=== PATIENT | male | born 1940 | race African-American/Black ===

== ENCOUNTER 2021-02-12 08:21 | Emergency (ER) | payer OTHER ==
[~2021-02-12] VITALS: Ht 165.1 cm; Wt 72.7 kg
[2021-02-12] MEDS ORDERED: ACETAMINOPHEN 325MG TABLET PO ONE (08:45)
[2021-02-12 09:00] LABS: BASOPHILS % 0.6 % (0.0-2.0); EOSINOPHILS % 0.8 % (0.0-5.0); HEMATOCRIT. 34.4 % (42.0-52.0); HEMOGLOBIN. 11.4 g/dL (14.0-18.0); LYMPHOCYTES % 10.9 % (20.0-50.0); MEAN CORPUSCULAR VOLUME 87.9 fL (80.0-94.0); MEAN PLATELET VOLUME 9.1 fl (7.4-10.4); MONOCYTES % 9.1 % (2.0-8.0); NEUTROPHILS % 78.6 % (40.0-76.0); PLATELET 316 x1000/uL (130-400); RED BLOOD CELL COUNT 3.91 mill/uL (4.7-6.1); RED CELL DISTRIBUTION WIDTH 14.8 % (11.6-14.6)
[2021-02-12 09:07] LABS: CHLORIDE 101 mEq/L (98-107)
[2021-02-12 09:10] LABS: INR 1.1; PROTHROMBIN TIME 11.3 sec (9.6-11.0)
[2021-02-12 09:10] LABS: CLARITY URINE CLOUDY (CLEAR); COLOR URINE RED (YELLOW); KETONES URINE NEGATIVE (NEGATIVE); LEUKOCYTE ESTERASE URINE 2+ (NEGATIVE); NITRITE URINE NEGATIVE (NEGATIVE); OCCULT BLOOD URINE 3+ (NEGATIVE); PROTEIN URINE 3+ (NEGATIVE); SPECIFIC GRAVITY URINE 1.021 (1.005-1.030)
[2021-02-12 09:15] LABS: CREATINE KINASE 76 IU/L (39-308)
[2021-02-12 09:18] LABS: CREATINE KINASE MB FRACTION 1.8 ng/mL (0.5-3.6)
[2021-02-12] MEDS ORDERED: LEVOFLOXACIN 500MG PREMIX 100 ML IV ONE (10:00)
[2021-02-12] MEDS ORDERED: SODIUM CHLORIDE 0.9% 500 ML IV ONE (10:00)
[2021-02-12 14:20] VITALS: BP 153/68
== END 2021-02-12 14:58 | disposition short-term general hospital (02) ==
LOC: EDBD 08:46 → ER 08:46 → CANBEDREQ 15:37
DX: E86.0 Dehydration (principal); M79.661 Pain in right lower leg; M25.571 Pain in right ankle and joints of right foot; M25.551 Pain in right hip; N39.0 Urinary tract infection, site not specified; I67.82 Cerebral ischemia; I10 Essential (primary) hypertension; W01.0XXA Fall on same level from slipping, tripping and stumbling without subsequent striking against object, initial encounter; Y93.89 Activity, other specified; Y92.89 Other specified places as the place of occurrence of the external cause
CPT/HCPCS: 29515; 36415; 70450; 71045; 73502; 73552; 73590; 73630; 80053; 81003; 82550; 82553; 83690; 83880; 84484; 85025; 85610; 86850; 86900; 86901; 87086; 93005; 93970; 96365; 99285; J1956; J7040